=== PATIENT | female | born 1955 | race Two or more races ===

== ENCOUNTER 2018-08-05 07:23 | Day surgery (SDC) | payer OTHER | END 2018-08-05 16:45 | disposition home or self-care (01) | LOC: AMB-ENDOS 07:23 | DX: K57.30 Diverticulosis of large intestine without perforation or abscess without bleeding (principal); Z12.11 Encounter for screening for malignant neoplasm of colon ==

== ENCOUNTER 2020-02-16 06:58 | Day surgery (SDC) | payer OTHER | END 2020-02-16 11:55 | disposition home or self-care (01) | LOC: AMB-ENDOS 06:58 | PROVIDERS: ATTEND Colon & Rectal Surgery | DX: K62.89 Other specified diseases of anus and rectum (principal); K64.8 Other hemorrhoids; Z12.11 Encounter for screening for malignant neoplasm of colon; Z20.828 Contact with and (suspected) exposure to other viral communicable diseases ==